=== PATIENT | female | born 1950 | race Hispanic/Latino ===

== ENCOUNTER 2017-07-25 10:51 | Outpatient (CLI) | payer MEDICARE, MEDICAID ==
--- NOTE | 2017-07-25 14:30 | PRG ---
DATE OF SERVICE: 07/25/2017 HISTORY: Ms. Sabi Atkinson is a very pleasant 67-year-old accompanied by one of her daughters , who [facility] for evaluation of a pressure ulceration of the left presacral reg ion. The patient was last seen in the [facility] on 09/21/2016. Since the patient's last visit, Ms. Atkinson underwent laparoscopic cholecystectomy with intraoperative cholangiogram by Dr. Lowell stack on 11/08/2016 for treatment of acute cholecystitis. For the wound at the left presacral region , the patient has been receiving dressing changes of Maxorb AG with the assistance of Home Health an d her caregiver. The patient's caregiver is with the patient on a daily basis from Saturday to Saturday . The patient has no other complaints today. She denies any fever or chills. PHYSICAL EXAMINATION: VITAL SIGNS: Temperature 98.0, pulse 84, respirations 18, and blood pressure 121/75. BACK: An ulceration of the left presacral region is present, which measures approximately 1.2 x 0.7 cm. Granulation tissue is present within the wound margins. Nonviable tissue present within the w ound margins was debrided with an excisional full-thickness debridement with the use of a curet. No purulent drainage is associated with the wound. No erythema of the skin surrounding the wound is p resent. No maceration of the skin of the periwound is noted. ASSESSMENT AND PLAN: 1. Pressure ulceration of left presacral region as described above, dressing changes of Maxorb AG w ill be continued with the assistance of Home Health and the patient's caregiver. No antibiotics jeyson l be prescribed today based upon the appearance of the wound. As per the patient's daughter's reque st, Ms. Atkinson will be discharged from clinic today with followup on an as needed basis. The imp ortance of offloading in achieving the healing of the ulceration has been discussed with the patient and her daughter. 2. Hypertension. 3. Right cerebrovascular accident with left-sided hemiparesis.
[2017-07-25] MEDS ORDERED: Sodium Chloride 0.9% 15 ML NEB ONE (17:31)
[2017-07-25] MEDS ORDERED: Lidocaine 2% Jelly 5 ML TUBE ONE (17:31)
== END 2017-07-25 10:52 | disposition home or self-care (01) ==
LOC: WCC 10:51
PROVIDERS: ATTEND Family Medicine
DX: L89.159 Pressure ulcer of sacral region, unspecified stage (principal); I63.9 Cerebral infarction, unspecified; G81.94 Hemiplegia, unspecified affecting left nondominant side
CPT/HCPCS: 11042; A4218

== ENCOUNTER 2018-01-30 13:42 | Outpatient (CLI) | payer MEDICARE, OTHER ==
[2018-01-30] MEDS ORDERED: Sodium Chloride 0.9% 15 ML NEB ONE (15:30)
--- NOTE | 2018-01-30 21:18 | PRG ---
DATE OF SERVICE: 01/30/2018 HISTORY: Ms. Sabi Atkinson is a very pleasant 67-year-old accompanied by one of her daughters and another relative who presents to the [facility] for evaluation of a pressure ulceration of the lef t buttock. The patient's relative who is also her caregiver states that Ms. Atkinson has been recei ving dressing changes of Maxorb AG for the wound of her left buttock. The patient has no other compl aints today. She denies any fever or chills. PHYSICAL EXAMINATION: VITAL SIGNS: Temperature 98.7, pulse 79, respirations 18, blood pressure 128/73. BACK: Multiple small ulcerations in a diffuse distribution are present over the left buttock. Each ulceration is superficial and appears to be secondary to shear stress. No serous or purulent drainag e is associated with any of the ulcerations. No erythema of the left buttock is present. No macerat ion of the skin of the left buttock is present. ASSESSMENT AND PLAN: 1. Multiple small superficial ulcerations of left buttock as described above. The patient's daughte r and caregiver have been reassured that the ulcerations appear to be secondary to shear stress. Carline pinto recommended to the patient's daughter and caregiver that the present dressing changes be disconti nued and that a barrier cream such as Calmoseptine to be applied to the skin of the left buttock afte r the patient's bath each day, after patting dry of the skin of the left buttock. The patient's daug hter and caregiver understand and are in agreement with the preceding treatment plan. They have been reassured that no cellulitis of the left buttock is present. Ms. Atkinson will return to clinic on an as needed basis. 2. Hypertension. 3. Right cerebrovascular accident with left-sided hemiparesis.
== END 2018-01-30 13:43 | disposition home or self-care (01) ==
LOC: WCC 13:42
PROVIDERS: ATTEND Family Medicine
DX: L98.419 Non-pressure chronic ulcer of buttock with unspecified severity (principal); I10 Essential (primary) hypertension; I69.354 Hemiplegia and hemiparesis following cerebral infarction affecting left non-dominant side
CPT/HCPCS: 97139; 97602; G0463; 99203; A4218

== ENCOUNTER 2018-03-17 08:53 | Outpatient (CLI) | payer MEDICARE ==
--- NOTE | 2018-03-17 10:50 | PRG ---
DATE OF SERVICE: 03/17/2018 HISTORY: Ms. Sabi Atkinson is a very pleasant 67-year-old accompanied by one of her daughters and another relative who presents to the [facility] for evaluation of a pressure ulceration of the lef t buttock. The patient's relative who is also her caregiver states that Ms. Atkinson has been recei ving the application of a barrier cream to the right and left buttocks and sacral region. Ms. Edwar chauhan has no other complaints today. She denies any fever or chills. PHYSICAL EXAMINATION: VITAL SIGNS: Temperature 98.6, pulse 75, respirations 18, blood pressure 134/83. BACK: Multiple small ulcerations in a diffuse distribution in various stages of healing are present over the right and left buttocks. Each ulceration is superficial and appears to be secondary to auguste r stress. No serous or purulent drainage is associated with any of the ulcerations. No erythema of the right or left buttock is present. No maceration of the skin of the right or left buttock is pres ent. One open wound is present over the left buttock, which measures approximately 0.5 x 0.5 cm. ASSESSMENT AND PLAN: 1. Multiple small superficial ulcerations of right and left buttocks as described above. The patien t's daughter and caregiver have been reassured again that the ulcerations appear to be secondary to s hear stress. I have recommended to the patient's daughter and caregiver that a barrier cream such as Calmoseptine be continued to the skin of the right and left buttocks after the patient's bath each d ay after patting dry the skin of the right and left buttocks. The patient's daughter and caregiver u nderstand and are in agreement with the preceding treatment plan. The patient has been given a presc ription for a low air loss mattress or air fluidized bed. Ms. Atkinson will return to clinic on an as needed basis. 2. Hypertension. 3. Right cerebrovascular accident with left-sided hemiparesis.
== END 2018-03-17 08:54 | disposition home or self-care (01) ==
LOC: WCC 08:53
PROVIDERS: ATTEND Family Medicine
DX: L98.419 Non-pressure chronic ulcer of buttock with unspecified severity (principal); I10 Essential (primary) hypertension; I69.954 Hemiplegia and hemiparesis following unspecified cerebrovascular disease affecting left non-dominant side
CPT/HCPCS: 97602

== ENCOUNTER 2018-04-09 11:19 | Outpatient (CLI) | payer MEDICARE, OTHER ==
--- NOTE | 2018-04-09 12:43 | PRG ---
DATE OF SERVICE: 04/09/2018 HISTORY: Ms. Sabi Atkinson is a very pleasant 67-year-old accompanied by multiple relatives, who presents to the [facility] for evaluation of a pressure ulceration of the sacral region. One of th e patient's relatives also serves as the patient's caregiver. She states that Ms. Atkinson has been receiving the application of a barrier cream to the sacral region and right and left buttocks. The patient has no complaints today. She denies any fever or chills. PHYSICAL EXAMINATION: VITAL SIGNS: Temperature 98.4, pulse 68, respirations 18, and blood pressure 145/71. BACK: Two small ulcerations over the sacral region are present. No serous or purulent drainage is a ssociated with either wound. No erythema of the sacral region is present. No maceration of the skin of the sacral region is present. Each ulceration is superficial and appears to be secondary to auguste r stress. ASSESSMENT AND PLAN: 1. Two small superficial ulcerations of the sacral region as described above. The patient's relativ es including her caregiver have been reassured that the ulcerations appear to be secondary to shear s tress. I have recommended to the patient's caregiver that a barrier cream be continued to the skin o f the sacral region and of the right and left buttocks after the patient's bath each day. After kris ing dry the skin of the right and left buttocks. For the ulcerations, the patient is also to receive dressing changes of Aquacel AG and Mepilex border on a daily basis. Ms. Atkinson will return to [facility] on an as needed basis. The patient is in the process of acquiring a low air loss mattress or ai r fluidized bed. The patient's relatives including her caregiver understand and are in agreement wit h the preceding treatment plan. 2. Hypertension. 3. Right cerebrovascular accident with left-sided hemiparesis.
== END 2018-04-09 11:20 | disposition home or self-care (01) ==
LOC: WCC 11:19
PROVIDERS: ATTEND Family Medicine
DX: L89.159 Pressure ulcer of sacral region, unspecified stage (principal); I10 Essential (primary) hypertension; I63.9 Cerebral infarction, unspecified; G81.94 Hemiplegia, unspecified affecting left nondominant side
CPT/HCPCS: 97602

== ENCOUNTER 2020-02-11 12:40 | Emergency (ER) | payer MEDICARE, MEDICAID ==
[~2020-02-11 12:40] MED LIST: Atropine Sulfate 1 mg/10 ml Syringe ONE; Calcium Chloride 1 GM/10 ML Abboject SYRINGE ONE; EPINEPHrine 1 MG/10 ML Abboject SYRINGE ONE; Sodium Bicarb 50 MEQ/50 ML Abboject 8.4% SYRINGE ONE
[2020-02-11] MEDS ORDERED: EPINEPHrine 1 MG/10 ML Abboject SYRINGE ONE ×3 (13:03→13:05)
== END 2020-02-11 13:16 | disposition expired ==
LOC: ERS 12:40
DX: I46.9 Cardiac arrest, cause unspecified (principal)
CPT/HCPCS: 92950; 96374; 96375; 96376; 99285; J1610; J0171; J0461